=== PATIENT | female | born 1985 | race Caucasian/White ===

== ENCOUNTER 2016-12-11 06:29 | Inpatient (IN) | payer OTHER ==
[2016-12-11] MEDS ORDERED: LR 1,000 ML IV PRN (08:43)
[2016-12-11] MEDS ORDERED: OXYTOCIN/RINGERS LACTATE 1,000 ML IV PRN (08:43)
[2016-12-11] MEDS ORDERED: TERBUTALINE SULFATE 1 MG/ML VIAL IV PRN (08:43)
[2016-12-11] MEDS ORDERED: OLIVE OIL 118 ML BTL MISC PRN (08:43)
[2016-12-11] MEDS ORDERED: EPSOM SALT 454 GM TP PRN (08:43)
[2016-12-11 09:43] LABS: % IMMATURE GRANULYOCYTES 0.9 % (0.0-1.1); ABSOLUTE IMMATURE GRANULOCYTES 0.11 10^3/uL (0.00-0.10); ADD DIFF? NO; ADD MORPH? NO; ADD SCAN? NO; ATYPICAL LYMPHOCYTE FLAG 0 (0-99); FRAGMENT RBC FLAG 0 (0-99); HEMATOCRIT 39.1 % (38.0-47.0); HEMOGLOBIN 13.4 g/dL (12.6-16.3); LEFT SHIFT FLG 10 (0-99); LIPEMIA HEMOLYSIS FLAG 90 (0-99); MEAN CELL HEMOGLOBIN 30.9 pg (27.9-34.1); MEAN CELL HEMOGLOBIN CONCENTR. 34.3 g/dL (32.4-36.7); MEAN CELL VOLUME 90.3 fL (81.5-99.8); PLATELET CLUMPS FLAG 0 (0-99); PLATELET COUNT 227 10^3/uL (150-400); RED BLOOD CELL COUNT 4.33 10^6/uL (4.18-5.33); RED CELL DISTRIBUTION WIDTH 13.4 % (11.5-15.2)
[2016-12-11] MEDS: MISOPROSTOL 100 MCG TAB PO SCH ×4 (10:21→23:37)
[2016-12-11] MEDS ORDERED: MISOPROSTOL 100 MCG TAB PO SCH (12:00)
[2016-12-11 13:20] LABS: ALANINE AMINOTRANSFERASE 46 IU/L (9-52); ASPARTATE AMINOTRANSFERASE 41 IU/L (14-46); BILIRUBIN,TOTAL 0.6 mg/dL (0.1-1.4); BILIRUBIN-CONJUGATED 0.4 mg/dL (0.0-0.5); BILIRUBIN-UNCONJUGATED 0.2 mg/dL (0.0-1.1); CREATININE 0.6 mg/dL (0.6-1.0); GLOMERULAR FILTRATION RATE > 60; LACTATE DEHYDROGENASE 670 IU/L (313-618); URIC ACID 5.8 mg/dL (2.5-6.8)
--- NOTE | 2016-12-11 14:18 | GHP ---
[f rep st] HISTORY AND PHYSICAL DATE OF ADMISSION: 12/11/2016 ADMITTING DIAGNOSES: 1. Intrauterine at 40-4/7 weeks. 2. Elective induction. HISTORY OF PRESENT ILLNESS: Patient is a 31-year-old, 1, para 0, at 40- 4/7 weeks with an estimated due date of 12/07/2016, by last menstrual period, 03/01/2016, and confirmed by first-trimester ultrasound at 7 weeks. Patient presents to Labor and Delivery for an elective induction. Patient presented to the office yesterday and stated "she is ready to be done." On exam , she was found to be 1 cm dilated, 50% effaced, and -2 station. Patient is declining a balloon for an induction, and does want to wait for the next available induction date 5 days from now. Patient states there is good movement and denies any contractions. No leakage of fluid or vaginal bleeding noted. Patient has good care at [facility], and presented in her first trimester. Patient has a history of ADHD, anxiety, not on any medications currently. Patient was taking Adderall for her ADHD and did well discontinuing it. For her anxiety, she is not willing to restart Lamictal during her . Patient has a history of a LEEP and had a cervical length at 16 weeks that was normal; however, there was a low-lying placenta. She had a followup ultrasound third trimester, and low-lying placenta had resolved. Patient has a history of "slight" hypothyroidism, however, is not taking any thyroid medication at this time. She did receive Tdap. GBS cx is negative. PAST OBSTETRICAL HISTORY: Patient is a primipara. GYNECOLOGICAL HISTORY: Age of menarche 16. Cycles are every 28 days for 5 days. Last menstrual period, 03/01/2016. Positive test 04/08/2016. Patient has a history of abnormal Pap smears and had a colposcopy done showing CHARLIE 1, questionable 2, but did not have any treatment. Patient had a history of HPV, genital warts, and had gotten laser treatment. No other exposure to any STDs. PAST MEDICAL HISTORY: ADHD, anxiety. She was, in 2007, slightly hypothyroid, found to have a small goiter. PAST SURGICAL HISTORY: Multiple ankle fractures. She had a spinal tap, age 35 years old, to rule out meningitis. LEEP. MEDICATIONS: Include vitamins, DHEA. ALLERGIES: Morphine sulfate, codeine. SOCIAL HISTORY: Patient is , lives with . She works at [employer]. Denies any alcohol, tobacco, or illicit drug use. FAMILY HISTORY: A maternal grandmother with diabetes, heart disease, hypothyroid. Father with brain cancer, age 45. LABORATORIES: O positive, antibody negative. RPR nonreactive. Rubella immune. Hepatitis B surface antigen negative. HIV negative. TSH and free T4 1.8 and 1.04. Quad screen was negative. H and H at 28 weeks, 12.8 and 36.5. One-hour Glucola 143. Three-hour Glucola 81, 141, 106, 106. GBS is negative. PHYSICAL EXAMINATION: VITAL SIGNS: On admission, vital signs are stable. Patient is afebrile. GENERAL: Well-nourished well-developed female, alert and oriented x3. No apparent distress. CARDIOVASCULAR: Regular rate and rhythm. LUNGS: Clear to auscultation bilaterally. Normal breath sounds. ABDOMEN: Gravid, soft, nontender, nondistended. EXTREMITIES: Normal to inspection without calf tenderness or edema. PELVIC: Deferred at this time since patient does not tolerate exam. heart tones: Category I tracing. heart rate baseline of 140 beats per minute, positive accels, negative decels, moderate variability. ASSESSMENT: Patient is a 31-year-old, 1, para 0, at 40-4/7 weeks for an elective induction. PLAN: 1. Admit to Labor and Delivery for induction of labor. 2. Unfavorable cervix. Will proceed with cervical ripening, oral Cytotec q.4 hours as needed. 3. GBS is negative. No prophylactic antibiotics are needed. /[id number]/MODL MTDD
--- NOTE | 2016-12-11 17:04 | OBPROG ---
OBG Progress Note Assessment/Plan: Assessment: 31 y/o @ 40 4/7 wks for elective IOL Plan: FHTs - Cat I tracing s/p Cytotec x 2 orally, 25 mcg followed by 50 mcg - pt with some cramping Pt is very uncomfortable with exams, will hold off on exam for now since and will check cervix prior to 3rd dose of Cytotec Encouraged ambulation, birthing ball, moving around 12/11/16 17:04 Subjective: Pt is having some cramping and endorses she had felt one contraction. Good FM noted. Objective: 12/11/16 08:00 12/11/16 08:00 Patient ABO/Rh O POSITIVE 12/11/16 08:00 Uric Acid 5.8 mg/dL (2.5-6.8) 12/11/16 08:00 Total Bilirubin 0.6 mg/dL (0.1-1.4) 12/11/16 08:00 Conjugated Bilirubin 0.4 mg/dL (0.0-0.5) 12/11/16 08:00 Unconjugated Bilirubin 0.2 mg/dL (0.0-1.1) 12/11/16 08:00 AST 41 IU/L (14-46) 12/11/16 08:00 ALT 46 IU/L (9-52) 12/11/16 08:00 Lactate Dehydrogenase 670 IU/L (313-618) H 12/11/16 08:00 Current Contraction Pattern: Irregular FHR (bpm): 130 FHR Pattern Variability: Moderate FHR Category: 1 Membranes: Intact ICD10 Worksheet Patient Problems: Problems Problem Status Onset Elective induction of labor planned Acute
[2016-12-12] MEDS ORDERED: LIDOCAINE 1% 300 MG/30 ML SDV ONE (04:27)
[2016-12-12] MEDS ORDERED: OLIVE OIL 118 ML BTL ONE (04:27)
[2016-12-12] MEDS ORDERED: OXYTOCIN 10 UNIT/ML VIAL ONE (04:28)
[2016-12-12] MEDS ORDERED: AMMONIA AROMATIC 1 EACH AMP IH ONE (04:28)
[2016-12-12] MEDS ORDERED: MISOPROSTOL 200 MCG TAB ONE (04:28)
[2016-12-12] MEDS ORDERED: TERBUTALINE SULFATE 1 MG/ML VIAL ONE (04:28)
[2016-12-12] MEDS ORDERED: OXYTOCIN/RINGERS LACTATE 500 ML IV SCH (05:00)
--- NOTE | 2016-12-12 11:39 | OBPROG ---
OBG Progress Note Assessment/Plan: Assessment: IUP at 40w4d elective induction on pit at 18mu/min h/o anxiety/ADHD h/o LEEP Plan: latent labor, rec AROM, pt declines at this time 12/12/16 11:36 Subjective: Pt doing ok - feeling increased cramping. No bld. walking a bit.. agrees to exam Objective: 12/11/16 08:00 12/11/16 08:00 Patient ABO/Rh O POSITIVE 12/11/16 08:00 Uric Acid 5.8 mg/dL (2.5-6.8) 12/11/16 08:00 Total Bilirubin 0.6 mg/dL (0.1-1.4) 12/11/16 08:00 Conjugated Bilirubin 0.4 mg/dL (0.0-0.5) 12/11/16 08:00 Unconjugated Bilirubin 0.2 mg/dL (0.0-1.1) 12/11/16 08:00 AST 41 IU/L (14-46) 12/11/16 08:00 ALT 46 IU/L (9-52) 12/11/16 08:00 Lactate Dehydrogenase 670 IU/L (313-618) H 12/11/16 08:00 - SVE Dilation (cm): 2 Effacement (%): 80 Station: -1 Current Contraction Pattern: Regular FHR (bpm): 130 FHR Pattern Variability: Moderate FHR Category: 1 Membranes: Intact ICD10 Worksheet Patient Problems: Problems Problem Status Onset Elective induction of labor planned Acute
--- NOTE | 2016-12-12 15:22 | OBPROG ---
OBG Progress Note Assessment/Plan: Assessment: IUP at 40w4d elective induction on pit at 22mu/min h/o anxiety/ADHD h/o LEEP increased pain Plan: Considering AMOR, rec AROM, pt declines at this time 12/12/16 11:36 12/12/16 15:20 12/12/16 15:20 Subjective: increased pain, exam more difficult Objective: 12/11/16 08:00 12/11/16 08:00 Patient ABO/Rh O POSITIVE 12/11/16 08:00 Uric Acid 5.8 mg/dL (2.5-6.8) 12/11/16 08:00 Total Bilirubin 0.6 mg/dL (0.1-1.4) 12/11/16 08:00 Conjugated Bilirubin 0.4 mg/dL (0.0-0.5) 12/11/16 08:00 Unconjugated Bilirubin 0.2 mg/dL (0.0-1.1) 12/11/16 08:00 AST 41 IU/L (14-46) 12/11/16 08:00 ALT 46 IU/L (9-52) 12/11/16 08:00 Lactate Dehydrogenase 670 IU/L (313-618) H 12/11/16 08:00 - SVE Dilation (cm): 3 Effacement (%): 80 Station: -1 Current Contraction Pattern: Regular FHR (bpm): 130 FHR Pattern Variability: Moderate FHR Category: 2 (couple late decels after exam while pt lying flat) Membranes: Intact ICD10 Worksheet Patient Problems: Problems Problem Status Onset Elective induction of labor planned Acute
[2016-12-12] MEDS ORDERED: fentaNYL 100 MCG/2 ML INJ ONE (15:53)
[2016-12-12] MEDS ORDERED: BUPIVACAINE 0.25% 30 ML SDV ONE (15:54)
[2016-12-12] MEDS ORDERED: fentaNYL 2MCG/ML/BUP 0.1% RTU 100 ML BAG EP ONE (15:54)
[2016-12-12] MEDS ORDERED: PHENYLEPHRINE HCL 100 MCG/ML SYR ONE (15:55)
[2016-12-12] MEDS ORDERED: ONDANSETRON 4 MG/2 ML VIAL IVP PRN (17:09)
[2016-12-12] MEDS ORDERED: NALOXONE HCL 0.4 MG/ML INJ IVP PRN (17:09)
[2016-12-12] MEDS ORDERED: PHENYLEPHRINE HCL 100 MCG/ML SYR IVP PRN (17:09)
[2016-12-12] MEDS ORDERED: fentaNYL 2MCG/ML/BUP 0.1% RTU 100 ML EP SCH (17:30)
[2016-12-12] MEDS ORDERED: LR 500 ML IV SCH (17:30)
--- NOTE | 2016-12-12 19:17 | OBPROG ---
OBG Progress Note Assessment/Plan: Assessment: IUP at 40w4d elective induction on pit at 22mu/min h/o anxiety/ADHD h/o LEEP AMOR Plan: AROM with IUPC placed 12/12/16 11:36 12/12/16 15:20 12/12/16 15:20 12/12/16 19:13 Subjective: Pt comfortable with AMOR, ok to AROM and IUPC if no change Objective: 12/11/16 08:00 12/11/16 08:00 Patient ABO/Rh O POSITIVE 12/11/16 08:00 Uric Acid 5.8 mg/dL (2.5-6.8) 12/11/16 08:00 Total Bilirubin 0.6 mg/dL (0.1-1.4) 12/11/16 08:00 Conjugated Bilirubin 0.4 mg/dL (0.0-0.5) 12/11/16 08:00 Unconjugated Bilirubin 0.2 mg/dL (0.0-1.1) 12/11/16 08:00 AST 41 IU/L (14-46) 12/11/16 08:00 ALT 46 IU/L (9-52) 12/11/16 08:00 Lactate Dehydrogenase 670 IU/L (313-618) H 12/11/16 08:00 - SVE Dilation (cm): 3 Effacement (%): 80 Station: -2 Current Contraction Pattern: Regular (q 2-3 min on 22 mu/min pit) FHR (bpm): 120 FHR Pattern Variability: Moderate FHR Category: 2 (prior to ROM, baby had some decels after position change. Exam unchanged and AROM done - copious clear fluid. IUPC placed - inadequate ctxns. approx 30 min of repetitve lates that improved with position change again.) Membranes: AROM Amniotic Fluid Color: Clear ICD10 Worksheet Patient Problems: Problems Problem Status Onset Elective induction of labor planned Acute
--- NOTE | 2016-12-12 19:54 | OBPROG ---
OBG Progress Note Assessment/Plan: Assessment: IUP at 40w4d elective induction on pit at 24mu/min - will d/c for now due to repetitive lates amnioinfusion h/o anxiety/ADHD h/o LEEP AMOR Plan: AROM with IUPC placed, last exam improved with head position centrally over cervix 12/12/16 11:36 12/12/16 15:20 12/12/16 15:20 12/12/16 19:13 12/12/16 19:51 Subjective: comfortable, anxious after we've talked about lates Objective: 12/11/16 08:00 12/11/16 08:00 Patient ABO/Rh O POSITIVE 12/11/16 08:00 Uric Acid 5.8 mg/dL (2.5-6.8) 12/11/16 08:00 Total Bilirubin 0.6 mg/dL (0.1-1.4) 12/11/16 08:00 Conjugated Bilirubin 0.4 mg/dL (0.0-0.5) 12/11/16 08:00 Unconjugated Bilirubin 0.2 mg/dL (0.0-1.1) 12/11/16 08:00 AST 41 IU/L (14-46) 12/11/16 08:00 ALT 46 IU/L (9-52) 12/11/16 08:00 Lactate Dehydrogenase 670 IU/L (313-618) H 12/11/16 08:00 - SVE Dilation (cm): 4 Effacement (%): 90 Station: -1 Current Contraction Pattern: Regular (q 2-4 min, low amplitude - MVU's inadequate) FHR (bpm): 130 FHR Pattern Variability: Moderate FHR Category: 2 Membranes: AROM Amniotic Fluid Color: Clear ICD10 Worksheet Patient Problems: Problems Problem Status Onset Elective induction of labor planned Acute
--- NOTE | 2016-12-12 22:45 | OBPROG ---
OBG Progress Note Assessment/Plan: Assessment: IUP at 40w4d pit restarted and now up to 16 mu/min amnioinfusion continuing h/o anxiety/ADHD h/o LEEP AMOR Plan: position changes, starting to notice lates but was great cat I strip when ctxns milder 12/12/16 11:36 12/12/16 15:20 12/12/16 15:20 12/12/16 19:13 12/12/16 19:51 12/12/16 22:42 Subjective: pt comfortable Objective: 12/11/16 08:00 12/11/16 08:00 Patient ABO/Rh O POSITIVE 12/11/16 08:00 Uric Acid 5.8 mg/dL (2.5-6.8) 12/11/16 08:00 Total Bilirubin 0.6 mg/dL (0.1-1.4) 12/11/16 08:00 Conjugated Bilirubin 0.4 mg/dL (0.0-0.5) 12/11/16 08:00 Unconjugated Bilirubin 0.2 mg/dL (0.0-1.1) 12/11/16 08:00 AST 41 IU/L (14-46) 12/11/16 08:00 ALT 46 IU/L (9-52) 12/11/16 08:00 Lactate Dehydrogenase 670 IU/L (313-618) H 12/11/16 08:00 - SVE Dilation (cm): 7 Effacement (%): 100 Station: -1 Current Contraction Pattern: Regular (q 2-3 min on 16 mu/min) FHR (bpm): 120 FHR Pattern Variability: Moderate FHR Category: 2 (lates noted again - was cat I tracing while pit d/c) Amniotic Fluid Color: Clear ICD10 Worksheet Patient Problems: Problems Problem Status Onset Elective induction of labor planned Acute
--- NOTE | 2016-12-13 00:32 | OBPROG ---
OBG Progress Note Assessment/Plan: Assessment: IUP at 40w4d pit on 16 mu/min - now completely dilated amnioinfusion continuing h/o anxiety/ADHD h/o LEEP AMOR Plan: complete and will labor down 12/12/16 11:36 12/12/16 15:20 12/12/16 15:20 12/12/16 19:13 12/12/16 19:51 12/12/16 22:42 12/13/16 00:30 Subjective: Pt feeling pressure but tolerable Objective: 12/11/16 08:00 12/11/16 08:00 Patient ABO/Rh O POSITIVE 12/11/16 08:00 Uric Acid 5.8 mg/dL (2.5-6.8) 12/11/16 08:00 Total Bilirubin 0.6 mg/dL (0.1-1.4) 12/11/16 08:00 Conjugated Bilirubin 0.4 mg/dL (0.0-0.5) 12/11/16 08:00 Unconjugated Bilirubin 0.2 mg/dL (0.0-1.1) 12/11/16 08:00 AST 41 IU/L (14-46) 12/11/16 08:00 ALT 46 IU/L (9-52) 12/11/16 08:00 Lactate Dehydrogenase 670 IU/L (313-618) H 12/11/16 08:00 - SVE Dilation (cm): 10 Effacement (%): 100 Station: +1 Current Contraction Pattern: Regular FHR (bpm): 130 FHR Pattern Variability: Moderate FHR Category: 1 Amniotic Fluid Color: Clear ICD10 Worksheet Patient Problems: Problems Problem Status Onset Elective induction of labor planned Acute
[2016-12-13] MEDS ORDERED: ACETAMINOPHEN 500 MG TAB PO ONE (01:00)
[2016-12-13] MEDS ORDERED: HYDROCODONE/APAP 5/325 TAB PO PRN (05:01)
[2016-12-13] MEDS ORDERED: DOCUSATE SODIUM 100 MG CAP PO PRN (05:01)
[2016-12-13] MEDS ORDERED: ACETAMINOPHEN 325 MG TAB PO PRN (05:01)
--- NOTE | 2016-12-13 05:06 | OBPROC ---
- Labor and Delivery Onset of Contractions Date: 12/12/16 Onset of Contractions Time: 18:03 Onset of Contractions Type: Induced Rupture of Membranes Date: 12/12/16 Rupture of Membranes Time: 18:08 Rupture of Membranes Type: Artificial (IUPC placed at same time for ctxn monitoring, amnioinfusion done later for decels) Amniotic Fluid Color: Clear (meconium noted at delivery) Dilation Complete Time: 00:24 Delivery Type: Spontaneous Placenta Delivery Date: 12/13/16 Placenta Delivery Time: 03:51 Episiotomy/Laceration: 2nd Degree, Midline, Perineal Repair: 2-0, 3-0, Vicryl EBL: 350 Complications: Nuchal Cord (x1 tight and cut on perineum) - Medications Labor Augmentation/Induction Meds Used: Pitocin (on 12/12), Misoprostol (on 12/11 , multiple doses) Labor Augmentation/Induction Indication: Elective Anesthesia: Epidural - Info Infant A Delivery Date: 12/13/16 Delivery Time: 03:39 Sex of : Male (Darrel Álvarez) Score (1 Min): 8 Score (5 Min): 8
[2016-12-13] MEDS: IBUPROFEN 600 MG TAB PO PRN ×3 (05:22→19:14)
[2016-12-13] MEDS: MISOPROSTOL 100 MCG TAB PO SCH ×2 (06:32→06:33)
[2016-12-14] MEDS: IBUPROFEN 600 MG TAB PO PRN (05:20)
[2016-12-14 10:57] VITALS: BP 133/84; PULSE 88; RESP 18; TEMP 97.8
--- NOTE | 2016-12-14 12:47 | SOAPPROG ---
SOAP Progress Note Assessment/Plan: Assessment: PPD 1 s/p Plan: D/C home 12/12/16 11:36 12/12/16 15:20 12/12/16 15:20 12/12/16 19:13 12/12/16 19:51 12/12/16 22:42 12/13/16 00:30 12/14/16 12:45 Subjective: Pt doing well. States bld has decreased - but varies up/down. urinating fine. Is pumping solely - initially got a good amount of colostrum. Bottom sore but ibu helps Objective: Vital Signs Temp Pulse Resp BP Pulse Ox 36.6 C 88 18 133/84 H 12/14/16 08:00 12/14/16 08:00 12/14/16 08:00 12/14/16 08:00 Laboratory Results 12/14/16 06:05 12/11/16 08:00 12/13/16 12/14/16 12/15/16 05:59 05:59 05:59 Output Total 350 Balance -350 Physical Exam - Physical Exam General Appearance: WD/WN Abdomen: non-tender, soft, other (FF at umb -1) Pelvic Exam: vaginal bleeding (normal lochia) Extremities: non-tender, pedal edema (moderate) Neuro/Psych: normal mood/affect ICD10 Worksheet Patient Problems: Problems Problem Status Onset (spontaneous vaginal delivery) Acute
== END 2016-12-14 13:05 | disposition home or self-care (01) | DRG 775 ==
LOC: FLD 06:29 → FOB 12-13 06:00
PROVIDERS: ADMIT Obstetrics & Gynecology; ATTEND Obstetrics & Gynecology
PROC: 3E033VJ Introduction of Other Hormone into Peripheral Vein, Percutaneous Approach (ICD-10-PCS; principal; 2016-12-13)
PROC: 10E0XZZ Delivery of Products of Conception, External Approach (ICD-10-PCS; principal; 2016-12-13)
PROC: 10907ZC Drainage of Amniotic Fluid, Therapeutic from Products of Conception, Via Natural or Artificial Opening (ICD-10-PCS; principal; 2016-12-13)
PROC: 0KQM0ZZ Repair Perineum Muscle, Open Approach (ICD-10-PCS; principal; 2016-12-13)
DX: O48.0 Post-term pregnancy (principal); Z37.0 Single live birth; Z3A.40 40 weeks gestation of pregnancy; O70.1 Second degree perineal laceration during delivery; O69.2XX0 Labor and delivery complicated by other cord entanglement, with compression, not applicable or unspecified
CPT/HCPCS: J2370; J2405; J2590; J3010; J3105